=== PATIENT | male | born 1980 | race Caucasian/White ===

== ENCOUNTER 2017-02-02 23:06 | Emergency (ER) | payer SELFPAY ==
[2017-02-02 23:07] VITALS: BP 194/98; PULSE 78; RESP 16; TEMP 98.5; O2SAT 100
[2017-02-02] MEDS ORDERED: PRIL20TA2 (23:09)
[2017-02-02 23:15] VITALS: BP 177/93; PULSE 84; RESP 18; TEMP 98.3; O2SAT 100
[2017-02-02] MEDS ORDERED: SODIUM CHLOR 0.9% 1000 ML INJ 1,000 ML IV SCH (23:18)
--- NOTE | 2017-02-02 23:22 | PD ---
HPI Chief Complaint: Abdominal Pain Time Seen by Provider: 23:13 Travel History International Travel<30 days: No Contact w/Intl Traveler<30days: No Traveled to known affect area: No History of Present Illness HPI 36-year-old male here for evaluation of left flank pain radiating to his left lower abdomen. Patient reports that he first started noticing the pain this morning, and it has been increasingly worsening throughout the day today. Pain is currently moderate, intermittently worse at times, no modifying factors, begins in his left flank and radiates to his left lower abdomen. No fevers or chills. No nausea or vomiting. No history of abdominal surgeries. No dysuria or hematuria. PFSH Social History Tobacco Use: No Substance Use: Yes (marijuana use) Allergies-Medications (Allergen,Severity, Reaction): Coded Allergies: No Known Allergies (Unverified , 02/02/17) Reported Meds & Prescriptions Reported Meds & Active Scripts Active Zofran Odt (Ondansetron Odt) 4 Mg Tab 4 Mg SL Q8HR PRN Lortab (Hydrocodone-Acetaminophen) 5-325 Mg Tab 1 Tab PO Q6H PRN Flomax (Tamsulosin HCl) 0.4 Mg Cap 0.4 Mg PO HS Reported Prilosec (Omeprazole Magnesium) 20 Mg Tab Review of Systems Except as stated in HPI: all other systems reviewed are Neg Physical Exam Narrative GENERAL: Well-developed, well-nourished, overweight, comfortable, no apparent distress. SKIN: Focused skin assessment warm/dry. No rash. HEAD: Atraumatic. Normocephalic. EYES: Pupils equal and round. No scleral icterus. No injection or drainage. ENT: Mucous membranes pink and moist. NECK: Trachea midline. No JVD. CARDIOVASCULAR: Regular rate and rhythm. No murmur appreciated. RESPIRATORY: No accessory muscle use. Clear to auscultation. Breath sounds equal bilaterally. GASTROINTESTINAL: Abdomen soft, non-tender, nondistended. MUSCULOSKELETAL: No obvious deformities. No clubbing. No cyanosis. No edema. Moderate left CVA tenderness. No right CVA tenderness. NEUROLOGICAL: Awake and alert. No obvious cranial nerve deficits. Motor grossly within normal limits. Normal speech. PSYCHIATRIC: Appropriate mood and affect; insight and judgment normal. Data Data Last Documented VS Vital Signs Date Time Temp Pulse Resp B/P (MAP) Pulse Ox O2 Delivery O2 Flow Rate FiO2 02/03/17 01:46 02/02/17 23:15 98.3 84 18 100 Room Air Orders Orders Complete Blood Count With Diff (02/02/17 23:18) Comprehensive Metabolic Panel (02/02/17 23:18) Lipase (02/02/17:18) Prothrombin Time / Inr (Pt) (02/02/17:18) Act Partial Throm Time (Ptt) (02/02/17:18) Urinalysis - C+S If Indicated (02/02/17 23:18) Ct Abd/Pel W/O Iv Contrast (02/02/17 23:18) Iv Access Insert/Monitor (02/02/17:18) Ecg Monitoring (02/02/17:18) Oximetry (02/02/17:18) Sodium Chlor 0.9% 1000 Ml Inj (Ns 1000 M (02/02/17 23:18) Sodium Chloride 0.9% Flush (Ns Flush) (02/02/17 23:30) Ketorolac Inj (Toradol Inj) (02/02/17 23:30) Tamsulosin (Flomax) (02/03/17 00:45) Ed Discharge Order (02/03/17 01:42) Labs Laboratory Tests Test 02/02/17 23:25 02/03/17 00:45 White Blood Count 14.1 TH/MM3 Red Blood Count 5.37 MIL/MM3 Hemoglobin 15.9 GM/DL Hematocrit 45.7 % Mean Corpuscular Volume 85.2 FL Mean Corpuscular Hemoglobin 29.6 PG Mean Corpuscular Hemoglobin Concent 34.7 % Red Cell Distribution Width 13.9 % Platelet Count 194 TH/MM3 Mean Platelet Volume 9.9 FL CBC Comment AUTO DIFF Differential Total Cells Counted 100 Neutrophils % (Manual) 55 % Lymphocytes % 32 % Monocytes % 6 % Eosinophils % 5 % Basophils % 2 % Neutrophils # (Manual) 7.8 TH/MM3 Differential Comment FINAL DIFF MANUAL Platelet Estimate NORMAL Platelet Morphology Comment NORMAL Red Cell Morphology Comment NORMAL Prothrombin Time 10.3 SEC Prothromb Time International Ratio 0.9 RATIO Activated Partial Thromboplast Time 26.9 SEC Blood Urea Nitrogen 11 MG/DL Creatinine 1.35 MG/DL Random Glucose 131 MG/DL Total Protein 8.1 GM/DL Albumin 4.2 GM/DL Calcium Level 9.3 MG/DL Alkaline Phosphatase 79 U/L Aspartate Amino Transf (AST/SGOT) 23 U/L Alanine Aminotransferase (ALT/SGPT) 37 U/L Total Bilirubin 0.4 MG/DL Sodium Level 140 MEQ/L Potassium Level 3.3 MEQ/L Chloride Level 104 MEQ/L Carbon Dioxide Level 23.0 MEQ/L Anion Gap 13 MEQ/L Estimat Glomerular Filtration Rate 60 ML/MIN Lipase 216 U/L Urine Color YELLOW Urine Turbidity HAZY Urine pH 6.0 Urine Specific [place] 1.030 Urine Protein 30 mg/dL Urine Glucose (UA) NEG mg/dL Urine Ketones 10 mg/dL Urine Occult Blood MOD Urine Nitrite NEG Urine Bilirubin NEG Urine Urobilinogen 2.0 MG/DL Urine Leukocyte Esterase NEG Urine RBC 140 /hpf Urine WBC 2 /hpf Urine Calcium Oxalate Crystals OCC /hpf Urine Mucus FEW /lpf Microscopic Urinalysis Comment CULT NOT INDICATED MDM Medical Decision Making Medical Screen Exam Complete: Yes Emergency Medical Condition: Yes Differential Diagnosis Nephrolithiasis, ureterolithiasis, pyelonephritis, UTI, cystitis, diverticulitis , colitis, dissection/AAA unlikely, musculoskeletal pain Narrative Course Vital signs reviewed. CBC shows WBC 14.1, hemoglobin 15.9, hematocrit 46, platelets 194. CMP is remarkable for creatinine 1.35, GFR 60, random glucose 131. UA shows moderate occult blood, calcium oxalate crystals, not suggestive of UTI. CT abdomen pelvis: CONCLUSION: 1. Mild obstructive uropathy on the left secondary to a left proximal ureteral calculus measuring 6 mm. 2. Moderate hepatic steatosis. 3. Right renal cyst. Patient was given a dose of IV Toradol, a liter of normal saline IV, and an oral dose of Flomax. He is resting comfortably stating he feels much better. He was made aware of all findings and provided a copy of his CT abdomen pelvis report. Plan is to discharge him home and have him follow-up as an outpatient with urology in a primary care physician this week. He was informed on when to return to the emergency department. He verbalizes understanding and agreement with plan. Diagnosis Primary Impression: Ureterolithiasis Additional Impressions: Hepatic steatosis Renal cyst, right Referrals: Matthew Ferrera MD 3 days Urologist [facility] 3 days Additional Instructions: Follow-up with a primary care physician this week. Follow-up with urologist Dr. Ferrera or a urologist of your choice this week. Take medications as prescribed. Return to the emergency department for worsening symptoms or any other concerns. Scripts Ondansetron Odt (Zofran Odt) 4 Mg Tab 4 MG SL Q8HR Y for Nausea/Vomiting, #20 TAB 0 Refills Prov: Deepak Page MD 02/03/17 Hydrocodone-Acetaminophen (Lortab) 5-325 Mg Tab 1 TAB PO Q6H Y for PAIN, #10 TAB 0 Refills Prov: Deepak Page MD 02/03/17 Tamsulosin (Flomax) 0.4 Mg Cap 0.4 MG PO HS for Manage Prostate Problems, #14 CAP 0 Refills Prov: Deepak Page MD 02/03/17 Disposition: 01 DISCHARGE HOME Condition: Stable Deepak Page MD Feb 02, 2017 23:22
[2017-02-02] MEDS ORDERED: SODIUM CHLORIDE 0.9% FLUSH 10 ML FLUSH IV FLUSH PRN (23:30)
[2017-02-02] MEDS ORDERED: KETOROLAC TROMETHAMINE 30 MG/ML (IVP) VIAL IV PUSH ONE (23:30)
[2017-02-02 23:42] LABS: HEMATOCRIT 45.7 % (39.0-51.0); HEMOGLOBIN 15.9 GM/DL (13.0-17.0); MEAN CELL VOLUME 85.2 FL (80.0-100.0); MEAN CORPUSCULAR HEMOGLOBIN 29.6 PG (27.0-34.0); MEAN CORPUSCULAR HGB CONC 34.7 % (32.0-36.0); MEAN PLATELET VOLUME 9.9 FL (7.0-11.0); PLATELET COUNT 194 TH/MM3 (150-450); RED BLOOD COUNT 5.37 MIL/MM3 (4.50-5.90); RED CELL DISTRIBUTION WIDTH 13.9 % (11.6-17.2); WHITE BLOOD COUNT 14.1 TH/MM3 (4.0-11.0)
[2017-02-02 23:51] LABS: INTERNATIONAL NORMALIZED RATIO 0.9 RATIO; PROTHROMBIN TIME - PATIENT 10.3 SEC (9.8-11.6)
[2017-02-03 00:07] LABS: ALBUMIN 4.2 GM/DL (3.4-5.0); ALT (GPT) 37 U/L (12-78); AST (GOT) 23 U/L (15-37); BLOOD UREA NITROGEN 11 MG/DL (7-18); CALCIUM 9.3 MG/DL (8.5-10.1); CHLORIDE 104 MEQ/L (98-107); CREATININE 1.35 MG/DL (0.60-1.30); GLOMERULAR FILTRATION RATE 60 ML/MIN (>89); GLUCOSE,RANDOM 131 MG/DL (74-106); LIPASE 216 U/L (73-393); SODIUM (NA) 140 MEQ/L (136-145)
[2017-02-03 00:09] LABS: ALKALINE PHOSPHATASE 79 U/L (45-117); TOTAL BILIRUBIN ADULT 0.4 MG/DL (0.2-1.0); TOTAL PROTEIN 8.1 GM/DL (6.4-8.2)
[2017-02-03 00:10] LABS: BASOPHILS 2 % (0-2); LYMPHOCYTES 32 % (9-44); MONOCYTES 6 % (0-8); NEUTROPHIL # MANUAL DIFF 7.8 TH/MM3 (1.8-7.7); POLYS (SEG NEUTROPHILS) 55 % (16-70)
--- NOTE | 2017-02-03 00:31 | RADRPT ---
EXAM DATE/TIME: 02/03/2017 00:04 [place] COMPARISON: No previous studies available for comparison. INDICATIONS : Left flank pain. ORAL CONTRAST: No oral contrast ingested. RADIATION DOSE: 13.52 CTDIvol (mGy) MEDICAL HISTORY : None SURGICAL HISTORY : None. ENCOUNTER: Initial ACUITY: 1 day PAIN SCALE: 10/10 LOCATION: Left flank TECHNIQUE: Volumetric scanning of the abdomen and pelvis was performed. Using automated exposure control and ad justment of the mA and/or kV according to patient size, radiation dose was kept as low as reasonably achievable to obtain optimal diagnostic quality images. DICOM format image data is available electro nically for review and comparison. FINDINGS: LOWER LUNGS: The visualized lower lungs are clear. LIVER: Decreased attenuation without lesion. There is no dilation of the biliary tree. No calcified gallst ones. SPLEEN: Normal size without lesion. PANCREAS: Within normal limits. KIDNEYS: Normal in size and shape. There is no mass, stone, or hydronephrosis on the right. Right renal cyst. Mild hydronephrosis of the left leading to a left proximal ureteral calculus measuring 6 mm. ADRENAL GLANDS: Within normal limits. VASCULAR: There is no aortic aneurysm. BOWEL/MESENTERY: The stomach, small bowel, and colon demonstrate no acute abnormality. There is no free intraperitone al air or fluid. ABDOMINAL WALL: Within normal limits. RETROPERITONEUM: There is no lymphadenopathy. BLADDER: No wall thickening or mass. REPRODUCTIVE: Within normal limits. INGUINAL: There is no lymphadenopathy or hernia. MUSCULOSKELETAL: Within normal limits for patient age. CONCLUSION: 1. Mild obstructive uropathy on the left secondary to a left proximal ureteral calculus measuring 6 m m. 2. Moderate hepatic steatosis. 3. Right renal cyst. Jere Taveras MD on February 03, 2017 at 0:27 Board Certified Radiologist. This report was verified electronically.
[2017-02-03] MEDS ORDERED: TAMSULOSIN HCL 0.4 MG CAP PO ONE (00:45)
[2017-02-03 01:30] LABS: BILIRUBIN, URINE NEG (NEG); BLOOD, URINE MOD (NEG); CALCIUM OXALATE CRYSTALS,URINE OCC /hpf; GLUCOSE,URINE NEG (NEG); KETONE, URINE 10 mg/dL (NEG); MUCUS URINE FEW /lpf (OCC); NITRITE,URINE NEG (NEG); URINE COLOR YELLOW (YELLW/STRAW); URINE LEUKOCYTE ESTERASE NEG (NEG)
[2017-02-03] MEDS ORDERED: HYDR-3533 PO (01:42)
[2017-02-03] MEDS ORDERED: TAMS5CAP PO (01:42)
[2017-02-03] MEDS ORDERED: ZOFR4TAB3 SL (01:42)
== END 2017-02-03 02:03 | disposition home or self-care (01) ==
LOC: NEPC 23:06
DX: N20.1 Calculus of ureter (principal); K76.0 Fatty (change of) liver, not elsewhere classified; N28.1 Cyst of kidney, acquired
CPT/HCPCS: 74176; 80053; 81001; 83690; 85007; 85027; 85610; 85730; 96374; 99285; J1885; J7030

== ENCOUNTER 2017-10-03 10:33 | Emergency (ER) | payer SELFPAY ==
[~2017-10-03] VITALS: Ht 172.7 cm; Wt 95.0 kg
[~2017-10-03 10:33] MED LIST: HYDR-3533 PO; PRIL20TA2; TAMS5CAP PO; ZOFR4TAB3 SL
[2017-10-03 10:47] VITALS: BP 176/95; PULSE 112; RESP 26; TEMP 98.9; O2SAT 98
== END 2017-10-03 10:53 | disposition left against medical advice (07) ==
LOC: NED 10:33
DX: M54.9 Dorsalgia, unspecified (principal)
CPT/HCPCS: 99281

== ENCOUNTER 2017-10-19 18:47 | Inpatient (IN) ==
[2017-10-19] MEDS ORDERED: Sod Chloride 0.9% Inj 1,000 ML IV.SIG ONE (22:50)
[2017-10-19] MEDS ORDERED: Ketorolac Inj 30 MG/ML (IVP) Vial IV.PUSH ONE (22:50)
--- NOTE | 2017-10-19 22:53 | ED ---
HPI General Chief complaint: Urogenital-Male Stated complaint: Left flank pain/trouble going to bathroom both end Time Seen by Provider: 10/19/17 22:40 History of Present Illness HPI narrative: This is a 36-year-old male with history of renal lithiasis in the past. He presents for evaluation of left flank pain. Symptom onset 1 week ago. He describes it as a intermittent left flank pressure that radiates into the left lower quadrant. He reports associated increased urinary frequency, hesitancy, occasional nausea and vomiting, occasional sweats as well as intermittent constipation. Symptoms are moderate with no aggravating or alleviating factors. Denies testicular scrotal pain, urethral discharge. He has no other complaints. Related Data Home Medications Medication Instructions Recorded Confirmed No Known Home Medications 10/19/17 10/19/17 Allergies Allergy/AdvReac Type Severity Reaction Status Date / Time No Known Allergies Allergy Verified 10/19/17 22:44 Review of Systems ROS Unobtainable All other systems reviewed negative except as stated [facility] Medical History Medical History Patient denies medical problems (Acute) Surgical History Surgical History No history of previous surgery (Acute) Social History Social History Recent Travel in [facility] within the Last 8 Weeks: No Recent Out of Country Travel within the Last 8 Weeks: No Exam Narrative Exam Narrative: GENERAL: Well-developed well-nourished male in no acute distress SKIN: Warm and dry. HEAD: Atraumatic. Normocephalic. EYES: Pupils equal and round. No scleral icterus. No injection or drainage. ENT: No nasal bleeding or discharge. Mucous membranes pink and moist. NECK: Trachea midline. No JVD. CARDIOVASCULAR: Regular rate and rhythm. No murmur appreciated. RESPIRATORY: No accessory muscle use. Clear to auscultation. Breath sounds equal bilaterally. GASTROINTESTINAL: Abdomen soft, mild left lower quadrant tenderness without guarding. No palpable inguinal hernias. examination reveals bilateral descended testicles which are nontender. No urethral discharge. MUSCULOSKELETAL: No obvious deformities. Mild left CVA tenderness. NEUROLOGICAL: Awake and alert. No obvious cranial nerve deficits. Motor grossly within normal limits. Normal speech. PSYCHIATRIC: Appropriate mood and affect; insight and judgment normal. Course Initial Documented Vital Signs Temperature 98.8 F 10/19/17 19:21 Pulse Rate 81 10/19/17 19:21 Respiratory Rate 18 10/19/17 19:21 Blood Pressure 160/87 H 10/19/17 19:21 Pulse Oximetry 100 10/19/17 19:21 Last Documented Vital Signs Temperature 98.8 F 10/19/17 19:21 Pulse Rate 71 10/20/17 00:59 Respiratory Rate 18 10/20/17 00:59 Blood Pressure 139/85 10/20/17 00:59 Pulse Oximetry 99 10/20/17 00:59 Medical Decision Making MDM Narrative Medical decision making narrative: Plan is for lab work, urinalysis, CT abdomen and pelvis. The patient be given IV fluids, Zofran and Toradol. CT imaging reveals severe left-sided hydroureteronephrosis with a 5 mm stone in the distal left ureter with evidence of pyelonephritis. He has leukocytosis with WBC count of 18. At this point in time the plan will be to admit him for IV antibiotics and urology consultation. He is agreeable. IV Rocephin is been ordered. Blood cultures and lactic acid have been ordered. Differential Diagnosis Differential Diagnosis: Ureteral stone, hydronephrosis, cystitis, urethritis, pyelonephritis, diverticulitis, muscle strain Lab Data Result diagrams: 10/19/17 23:05 10/19/17 23:05 Lab Results 10/19/17 10/19/17 10/19/17 Range/Units 23:05 23:05 23:11 WBC 18.0 H (4.0-11.0) th/mm3 RBC 5.49 (4.50-5.90) mil/mm3 Hgb 15.9 (13.0-17.0) gm/dL Hct 46.7 (39.0-51.0) % MCV 85.2 (80.0-100.0) fL MCH 29.0 (27.0-34.0) pg MCHC 34.0 (32.0-36.0) % RDW 13.9 (11.6-17.2) % Plt Count 214 (150-450) th/mm3 MPV 9.9 (7.0-11.0) fL Neut % (Auto) 84.7 H (16.0-70.0) % Lymph % (Auto) 9.3 (9.0-44.0) % [place] % (Auto) 5.3 (0.0-8.0) % Eos % (Auto) 0.1 (0.0-4.0) % Baso % (Auto) 0.6 (0.0-2.0) % Neut # (Auto) 15.2 H (1.8-7.7) th/mm3 Lymph # (Auto) 1.7 (1.0-4.8) th/mm3 [place] # (Auto) 1.0 H (0.0-0.9) th/mm3 Eos # (Auto) 0.0 (0.0-0.4) th/mm3 Baso # (Auto) 0.1 (0.0-0.2) th/mm3 WBC Differential . Differential Comment Auto diff final Sodium 141 (136-145) meq/L Potassium 3.7 (3.5-5.1) meq/L Chloride 107 (98-107) meq/L Carbon Dioxide 22.5 (21.0-32.0) meq/L Anion Gap 12 (5-15) meq/L BUN 11 (7-18) mg/dL Creatinine 1.59 H (0.60-1.30) mg/dL Estimated GFR 50 L (>89) mL/min Random Glucose 116 H (74-106) mg/dL Lactic Acid (0.4-2.0) mmol/L Calcium 9.1 (8.5-10.1) mg/dL Total Bilirubin 0.6 (0.2-1.0) mg/dL AST 18 (15-37) U/L ALT 22 (12-78) U/L Alkaline Phosphatase 80 (45-117) U/L Total Protein 7.7 (6.4-8.2) g/dL Albumin 4.2 (3.4-5.0) g/dL Urine Color Yellow (Yellw/Straw) Urine Clarity Clear (Clear) Urine pH 8.0 (5.0-8.5) Ur Specific [place] 1.012 (1.002-1.035) Urine Protein Negative (Neg-Trace) mg/dL Urine Glucose (UA) Negative (Negative) mg/dL Urine Ketones 20 (Negative) mg/dL Urine Occult Blood Moderate H (Negative) Urine Nitrate Negative (Negative) Urine Bilirubin Negative (Negative) Urine Urobilinogen Less than 2 (Less than 2) mg/dL Ur Leukocyte Esterase Negative (Negative) Urine RBC 24 H (0-3) /hpf Urine WBC 2 (0-5) /hpf Micro UA Comment Culture not ind Urine Culture Comments Culture not ind 10/20/17 Range/Units 00:45 WBC (4.0-11.0) th/mm3 RBC (4.50-5.90) mil/mm3 Hgb (13.0-17.0) gm/dL Hct (39.0-51.0) % MCV (80.0-100.0) fL MCH (27.0-34.0) pg MCHC (32.0-36.0) % RDW (11.6-17.2) % Plt Count (150-450) th/mm3 MPV (7.0-11.0) fL Neut % (Auto) (16.0-70.0) % Lymph % (Auto) (9.0-44.0) % [place] % (Auto) (0.0-8.0) % Eos % (Auto) (0.0-4.0) % Baso % (Auto) (0.0-2.0) % Neut # (Auto) (1.8-7.7) th/mm3 Lymph # (Auto) (1.0-4.8) th/mm3 [place] # (Auto) (0.0-0.9) th/mm3 Eos # (Auto) (0.0-0.4) th/mm3 Baso # (Auto) (0.0-0.2) th/mm3 WBC Differential Differential Comment Sodium (136-145) meq/L Potassium (3.5-5.1) meq/L Chloride (98-107) meq/L Carbon Dioxide (21.0-32.0) meq/L Anion Gap (5-15) meq/L BUN (7-18) mg/dL Creatinine (0.60-1.30) mg/dL Estimated GFR (>89) mL/min Random Glucose (74-106) mg/dL Lactic Acid 2.1 H (0.4-2.0) mmol/L Calcium (8.5-10.1) mg/dL Total Bilirubin (0.2-1.0) mg/dL AST (15-37) U/L ALT (12-78) U/L Alkaline Phosphatase (45-117) U/L Total Protein (6.4-8.2) g/dL Albumin (3.4-5.0) g/dL Urine Color (Yellw/Straw) Urine Clarity (Clear) Urine pH (5.0-8.5) Ur Specific [place] (1.002-1.035) Urine Protein (Neg-Trace) mg/dL Urine Glucose (UA) (Negative) mg/dL Urine Ketones (Negative) mg/dL Urine Occult Blood (Negative) Urine Nitrate (Negative) Urine Bilirubin (Negative) Urine Urobilinogen (Less than 2) mg/dL Ur Leukocyte Esterase (Negative) Urine RBC (0-3) /hpf Urine WBC (0-5) /hpf Micro UA Comment Urine Culture Comments Imaging Data Radiologist's impression: ITS Impressions Abdomen/Pelvis CT 10/19/17 22:49 CONCLUSION: 1. Severe left-sided hydroureteronephrosis secondary to 5 mm calcified calculus at the UVJ. Moderate perinephric stranding concerning for superimposed pyelonephritis. 2. Improved hepatic steatosis. 3. Stable 2 cm right renal cyst. Discharge Plan Discharge Disposition Patient Disposition: 30 Still Patient Discharge Condition Condition: Stable Discharge Details Diagnosis: Calculus, ureteral, Hydroureteronephrosis, Acute pyelonephritis Physicians Team ED Provider: Erin Han ED Midlevel Provider: Armani Dimas Primary Care Provider: Primary Care Lyle,Gabby Attending Provider: Nina Rosales Status ED Status: Admitted Patient
[2017-10-19 23:19] LABS: Baso # (Auto) 0.1 th/mm3 (0.0-0.2); Baso % (Auto) 0.6 % (0.0-2.0); Eos % (Auto) 0.1 % (0.0-4.0); Hematocrit 46.7 % (39.0-51.0); Hemoglobin 15.9 gm/dL (13.0-17.0); Lymph # (Auto) 1.7 th/mm3 (1.0-4.8); Lymph % (Auto) 9.3 % (9.0-44.0); Mean Corpuscular Volume 85.2 fL (80.0-100.0); Mean Platelet Volume 9.9 fL (7.0-11.0); Mono % (Auto) 5.3 % (0.0-8.0); Neut # (Auto) 15.2 th/mm3 (1.8-7.7); Neut % (Auto) 84.7 % (16.0-70.0); Platelet Count 214 th/mm3 (150-450); Red Blood Count 5.49 mil/mm3 (4.50-5.90); Red Cell Distribution Width 13.9 % (11.6-17.2)
[2017-10-19 23:25] LABS: Bilirubin,Urine Negative (Negative); Clarity,Urine Clear (Clear); Color,Urine Yellow (Yellw/Straw); Glucose,Urine (UA) Negative (Negative); Leukocyte Esterase,Urine Negative (Negative); Nitrite,Urine Negative (Negative); Specific Gravity,Urine 1.012 (1.002-1.035)
[2017-10-19 23:36] LABS: Alanine Aminotransferase 22 U/L (12-78); Albumin 4.2 g/dL (3.4-5.0); Anion Gap 12 meq/L (5-15); Aspartate Aminotransferase 18 U/L (15-37); Blood Urea Nitrogen 11 mg/dL (7-18); Calcium 9.1 mg/dL (8.5-10.1); Carbon Dioxide 22.5 meq/L (21.0-32.0); Chloride 107 meq/L (98-107); Glomerular Filtration Rate 50 mL/min (>89); Glucose,Random 116 mg/dL (74-106); Potassium 3.7 meq/L (3.5-5.1); Sodium 141 meq/L (136-145)
[2017-10-19 23:38] LABS: Alkaline Phosphatase 80 U/L (45-117); Total Protein 7.7 g/dL (6.4-8.2)
--- NOTE | 2017-10-19 23:56 | CT ---
EXAM DATE: 10/19/2017 11:38 PM EDT AGE/SEX: 36 years / Male INDICATIONS: Left flank pain. CLINICAL DATA: This is the patient's initial encounter. Patient reports that signs and symptoms have been present for 1 day and indicates a pain score of 5/10. MEDICAL/SURGICAL HISTORY: None. None. RADIATION DOSE: 7.24 CTDI (mGy) [place] [facility] [place] 02/03/2017. . TECHNIQUE: Multiple contiguous axial images were obtained through the abdomen. Images were obtained using multiple row detector helical technique. Using automated exposure control and adjustment of the mA and/or kV according to patient size, radiation dose was kept as low as reasonably achievable to o btain optimal diagnostic quality images. DICOM format image data is available electronically for rev iew and comparison. FINDINGS: LOWER LUNGS: The visualized lower lungs are clear. LIVER: Mild diffusely decreased hepatic density is improved from prior exam. No intrahepatic ductal dilatation. No calcified gallstones. SPLEEN: Homogeneous density without enlargement. PANCREAS: Unremarkable without mass or calcification. KIDNEYS: There is severe left-sided hydroureteronephrosis extending to the UVJ with a 5 mm calcified calculus at the UVJ. There is moderate perinephric stranding. Right kidney is stable with 2.1 cm cys t in the superior pole. No additional radiopaque renal calculi. ADRENAL GLANDS: Unremarkable. AORTA: Lilian-aneurysmal. BOWEL/MESENTERY: The bowel loops are grossly unremarkable. The cecum and sigmoid colon have a zack l configuration. Appendix is normal. ABDOMINAL WALL: Intact. RETROPERITONEUM: No evidence of adenopathy in the retrocrural, para-aortic, or deep pelvic regions. BLADDER: Largely decompressed. REPRODUCTIVE: Small calcifications in the prostate. BONY STRUCTURES: Unremarkable. CONCLUSION: 1. Severe left-sided hydroureteronephrosis secondary to 5 mm calcified calculus at the UVJ. Moderate perinephric stranding concerning for superimposed pyelonephritis. 2. Improved hepatic steatosis. 3. Stable 2 cm right renal cyst. Electronically signed by: Rhys Raza MD 10/19/2017 11:54 PM EDT
[2017-10-20] MEDS ORDERED: Bisacodyl 10 MG Supp RECTAL PRN (02:42)
[2017-10-20] MEDS ORDERED: Morphine Inj 4 MG/ML Vial IV.PUSH PRN (02:42)
[2017-10-20] MEDS ORDERED: Temazepam 15 MG Capsule PO PRN (02:42)
[2017-10-20] MEDS ORDERED: Acetaminophen 325 MG Tablet PO PRN (02:42)
[2017-10-20] MEDS: Sod Chloride 0.9% Inj 1,000 ML IV.CONT SCH ×2 (03:27→17:39)
--- NOTE | 2017-10-20 04:23 | P.HPIM ---
History of Present Illness Primary Care Physician: No Primary Care Physician Chief Complaint: nausea, diaphoresis, flank pain History of Present Illness: Mr. Martínez is a 36 y/o male with a history of left nephrolithiasis (01/2017) and hepatic steatosis (improved on this visit) who presented to the ER for evaluation of progressively worsening nausea, diaphoresis and left flank pain - severe were severe on presentation and have greatly improved by the time of my visit. Abd/Pelvis CT demonstrates severe left sided hydronephrosis secondary to 5 mm calculus at UVJ with moderate perinephric stranding concerning for pyelonephritis. WBC 18.0 with neutrophilia. The patient is admitted to the [facility] service for medical management. Symptoms have improved with IV Toradol, IVF hydration, IV antibiotics, and PO Zofran. Symptoms present intermittently x 1 week. - Diagnosis (1) Acute pyelonephritis (2) Hydroureteronephrosis (3) Calculus, ureteral Inpatient Certification: I certify that the inpatient services were ordered in accordance with Medicare regulations governing the order. This includes certification that hospital inpatient services are reasonable and necessary and in the case of services not specified as inpatient-only under 42 CFR 419.22(n), that they are appropriately provided as inpatient services in accordance to with the 2-midnight benchmark under 43 CFR 412.3(e) Estimated Total Length of Stay (Days): 2 Plans for Post Hospital Care: Not yet determined Review of Systems All other systems reviewed negative except as stated in [facility] - History History Provided By: Patient - Medical History Medical History: Medical History (Last Updated 10/20/17 @ 04:42 by RUI Quevedo) Left nephrolithiasis - Surgical History Surgical History: Surgical History (Last Updated 10/19/17 @ 19:23 by Dayana Marina) No history of previous surgery - Family History Family History: Family History (Last Updated 10/20/17 @ 04:43 by RUI Quevedo) Mother Nephrolithiasis - Tobacco History Smoking Status: Never smoker - Alcohol History How Often Do You Have a Drink Containing Alcohol: Never - Substance Use History Substance History: Active Abuse - Substance Use Type Marijuana Status: Active Route Used: Inhalation Frequency: daily - Travel History Recent Travel in the [place] Within the Last 8 Weeks: No Recent Travel Out of the Country Within the Last 8 Weeks: No Medications and Allergies Active Medications: Active Medications Acetaminophen (Tylenol) 650 mg PO Q4H PRN PRN Reason: Temp > 100.4 Al Hydroxide/Mg Hydroxide (Milk Of Magnesia Liq) 30 ml PO Q12H PRN PRN Reason: Mild Constipation Bisacodyl (Dulcolax Supp) 10 mg RECTAL DAILY PRN PRN Reason: SEVERE CONSITIPATION Ceftriaxone Sodium 1,000 mg/ (Sodium Chloride) 100 mls @ 200 mls/hr IV.SIG Q24H DANTE Sodium Chloride (Ns Inj) 1,000 mls @ 100 mls/hr IV.CONT .Q10H [facility] Last Admin: 10/20/17 03:27 Dose: 100 mls/hr Lactulose (Lactulose Liq) 30 ml PO DAILY PRN PRN Reason: SEVERE CONSITIPATION Morphine Sulfate (Morphine Inj) 2 mg IV.PUSH Q4H PRN PRN Reason: pain 6-10 Ondansetron HCl (Zofran Inj) 4 mg IV.PUSH Q6H PRN PRN Reason: NAUSEA OR VOMITING Senna/Docusate Sodium (Abbey-Colace) 1 tab PO BID [facility] Sennosides (Senokot) 17.2 mg PO Q12H PRN PRN Reason: Moderate Constipation Sodium Chloride (Ns Flush) 2 ml IV.FLUSH PRN PRN PRN Reason: FLUSH AFTER USING IV ACCESS Temazepam (Restoril) 15 mg PO HS PRN PRN Reason: INSOMNIA Allergies Allergy/AdvReac Type Severity Reaction Status Date / Time No Known Allergies Allergy Verified 10/19/17 22:44 Home Medications Medication Instructions Recorded Confirmed Type No Known Home Medications 10/19/17 10/19/17 History Exam Vital signs: Vital Signs 10/19/17 19:21 10/20/17 00:59 10/20/17 03:25 Temperature 98.8 F Pulse Rate 81 71 68 Respiratory Rate 18 18 18 Blood Pressure 160/87 H 139/85 133/74 Pulse Oximetry 100 99 98 Intake & Output 10/19/17 10/19/17 10/20/17 06:59 18:59 06:59 Intake Total 1100 / 1100 Balance 1100 / 1100 Weight 102.058 kg Intake: IV 1100 / 1100 Rocephin Inj 1,000 MG In NS Inj 100 / 100 100 ML @ 200 mls/hr IV.SIG ONCE ONE Rx#:[id number] - Constitutional no acute distress, obese - Routine Respiratory Exam Present: CTA bilaterally. Absent: wheezes, crackles - Routine Cardiovascular Exam Present: RRR, S1, S2. Absent: murmur, gallop, rubs - Routine Abdominal Exam Present: soft, normoactive bowel sounds. Absent: tenderness - Routine Extremities Exam Present: pulses intact. Absent: edema - Routine Skin Exam Present: intact, dry - Routine Neurological Exam Present: alert, oriented X3 - Additional findings Additional findings: mild left CVA tenderness Results - Labs CBC & Chem 7: 10/19/17 23:05 10/19/17 23:05 Labs: Short CBC 10/19/17 Range/Units 23:05 WBC 18.0 H (4.0-11.0) th/mm3 Hgb 15.9 (13.0-17.0) gm/dL Hct 46.7 (39.0-51.0) % Plt Count 214 (150-450) th/mm3 BMP 10/19/17 23:05 Sodium 141 Potassium 3.7 Chloride 107 Carbon Dioxide 22.5 BUN 11 Creatinine 1.59 H Calcium 9.1 Liver Function 10/19/17 Range/Units 23:05 Total Bilirubin 0.6 (0.2-1.0) mg/dL AST 18 (15-37) U/L ALT 22 (12-78) U/L Alkaline Phosphatase 80 (45-117) U/L Albumin 4.2 (3.4-5.0) g/dL Urine 10/19/17 Range/Units 23:11 Urine Color Yellow (Yellw/Straw) Urine Clarity Clear (Clear) Urine pH 8.0 (5.0-8.5) Ur Specific [place] 1.012 (1.002-1.035) Urine Protein Negative (Neg-Trace) mg/dL Urine Glucose (UA) Negative (Negative) mg/dL - Imaging Impressions Abdomen/Pelvis CT 10/19/17 22:49 CONCLUSION: 1. Severe left-sided hydroureteronephrosis secondary to 5 mm calcified calculus at the UVJ. Moderate perinephric stranding concerning for superimposed pyelonephritis. 2. Improved hepatic steatosis. 3. Stable 2 cm right renal cyst. Caprini VTE Risk Assessment Caprini VTE Risk Assessment: No/Low Risk (score <= 1) Caprini Risk Assessment Model: Point Value = 1 Point Value = 2 Point Value = 3 Point Value = 5 Age 41-60 Minor surgery BMI > 25 kg/m2 Swollen legs Varicose veins or History of unexplained or recurrent spontaneous Oral contraceptives or hormone replacement Sepsis (< 1 month) Serious lung disease, including pneumonia (< 1 month) Abnormal pulmonary function Acute myocardial infarction Congestive heart failure (< 1 month) History of inflammatory bowel disease Medical patient at bed rest Age 61-74 Arthroscopic surgery Major open surgery (> 45 min) Laparoscopic surgery (> 45 min) Malignancy Confined to bed (> 72 hours) Immobilizing plaster cast Central venous access Age >= 75 History of VTE Family history of VTE Factor V Leiden Prothrombin [id number] Lupus anticoagulant Anticardiolipin antibodies Elevated serum homocysteine Heparin-induced thrombocytopenia Other congenital or acquired thrombophilia Stroke (< 1 month) Elective arthroplasty Hip, pelvis, or leg fracture Acute spinal cord injury (< 1 month) Prophylaxis Regimen: Total Risk Factor Score Risk Level Prophylaxis Regimen 0-1 Low Early ambulation 2 Moderate Order ONE of the following: *Sequential Compression Device (SCD) *Heparin 5000 units SQ BID 3-4 Higher Order ONE of the following medications: *Heparin 5000 units SQ TID *Enoxaparin/Lovenox 40 mg SQ daily (WT < 150 kg, CrCl > 30 mL/min) *Enoxaparin/Lovenox 30 mg SQ daily (WT < 150 kg, CrCl > 10-29 mL/min) *Enoxaparin/Lovenox 30 mg SQ BID (WT < 150 kg, CrCl > 30 mL/min) AND/OR *Sequential Compression Device (SCD) 5 or more Highest Order ONE of the following medications: *Heparin 5000 units SQ TID (Preferred with Epidurals) *Enoxaparin/Lovenox 40 mg SQ daily (WT < 150 kg, CrCl > 30 mL/min) *Enoxaparin/Lovenox 30 mg SQ daily (WT < 150 kg, CrCl > 10-29 mL/min) *Enoxaparin/Lovenox 30 mg SQ BID (WT < 150 kg, CrCl > 30 mL/min) AND *Sequential Compression Device (SCD) Assessment and Plan - Assessment (1) Acute pyelonephritis Code(s): N10 - Acute pyelonephritis Status: Acute (2) Hydroureteronephrosis Code(s): N13.30 - Unspecified hydronephrosis Status: Acute (3) Calculus, ureteral Code(s): N20.1 - Calculus of ureter Status: Acute - Plan Mr. Martínez is a 36 y/o male with a history of nephrolithiasis (01/2017) and hepatic steatosis (improved on this visit) who presented to the ER for evaluation of progressively worsening nausea, diaphoresis and left flank pain - severe were severe on presentation and have greatly improved by the time of my visit. Abd/Pelvis CT demonstrates severe left sided hydronephrosis secondary to 5 mm calculus at UVJ with moderate perinephric stranding concerning for pyelonephritis. WBC 18.0 with neutrophilia. The patient is admitted to the [facility] service for medical management. Acute Pyelonephritis - Ceftriaxone IV - monitor CBC - Lactic acid 2.1 - repeat ordered - follow cultures Hydroureteronephrosis secondary to nephrolithiasis - IV Morphine PRN pain - IVF hydration - Consult urology - appreciate assistance - Zofran PRN n/v DVT prophylaxis - early ambulation Discussed Condition With: RN and Dr. Rosales
[2017-10-20] MEDS: Senna/Docusate Sodium 8.6/50 MG Tablet PO SCH ×2 (08:00→20:20)
--- NOTE | 2017-10-20 08:58 | MB ---
cc: ChetYuriyJames Nathan DATE: 10/20/2017 HISTORY OF PRESENT ILLNESS: This is a 36-year-old male presented with 24-hour onset of left-sided flank pain, associated with some nausea and diaphoresis. He does have a history of nephrolithiasis in the past. He denies any fever or chills. CT scan in the emergency room showed moderate left-sided hydronephrosis with a 4.7 mm left UVJ stone. Presently, he is pain free and denies any other complaints. PAST MEDICAL HISTORY: Noted for nephrolithiasis. PAST SURGICAL HISTORY: He denies. FAMILY HISTORY: Noted for stones. SOCIAL HISTORY: Denies smoking, denies drinking, but is noted to use drugs in the past. He smokes marijuana. REVIEW OF SYSTEMS: Denies chest pain or shortness of breath. Presently denies abdominal pain. No nausea or vomiting at present. Denies gait disturbances, bleeding disorders, psychiatric problems, skin lesions, and headaches. The remaining review of systems were reviewed and were negative. PHYSICAL EXAMINATION: VITAL SIGNS: Temperature 98.8, heart rate 81, respiratory rate 18, blood pressure 133/74, and 98% on room air. GENERAL: He is a well-developed, well-nourished, 36-year-old male in no acute distress. HEENT: Normocephalic, atraumatic. Pupils equal, round, regular, reactive to light. Extraocular movements intact. NECK: Supple. HEART: Regular rate and rhythm. LUNGS: Clear. ABDOMEN: Soft, nontender, and nondistended. BACK: Minimal left-sided CVA tenderness is noted. GENITOURINARY: Normal phallus. Testes descended. EXTREMITIES: Show no evidence of cyanosis, clubbing, or edema. LABORATORY DATA: White count is 18.0, hemoglobin 15.9, hematocrit 46.7, platelet count of 214. Sodium 141, potassium 3.7, chloride 107, CO2 of 22.5, BUN 11, creatinine 1.59, glucose of 116. Lactic acid of 0.7. Urinalysis shows 24 red cells with 2 white cells. IMAGING STUDIES: Again, CT scan of the abdomen and pelvis shows left-sided hydroureteronephrosis due to a 4.7 mm UVJ calculus on the left. Moderate perinephric stranding is noted. ASSESSMENT AND PLAN: A 36-year-old male with 5 mm distal left ureteropelvic junction stone with 2 WBCs noted in his urinalysis. Doubt this is pyelonephritis. No evidence of any fever has been documented. Would recommend conservative measures at this time, IV fluids and pain management. He can follow up on an outpatient basis. Thank you for the consult and allowing me to participate in the care of this patient. DO JENNIFER Mak/COLLETTE , 08:40 AM , 08:57 AM
[2017-10-21] MEDS: Sod Chloride 0.9% Inj 1,000 ML IV.CONT SCH (06:50)
[2017-10-21 07:08] LABS: Baso # (Auto) 0.1 th/mm3 (0.0-0.2); Baso % (Auto) 0.5 % (0.0-2.0); Eos # (Auto) 0.1 th/mm3 (0.0-0.4); Eos % (Auto) 0.5 % (0.0-4.0); Hematocrit 40.5 % (39.0-51.0); Hemoglobin 13.7 gm/dL (13.0-17.0); Lymph # (Auto) 2.5 th/mm3 (1.0-4.8); Mean Corpuscular HGB Conc 33.7 % (32.0-36.0); Mean Corpuscular Hemoglobin 29.1 pg (27.0-34.0); Mean Corpuscular Volume 86.3 fL (80.0-100.0); Mean Platelet Volume 10.6 fL (7.0-11.0); Mono # (Auto) 1.1 th/mm3 (0.0-0.9); Mono % (Auto) 9.7 % (0.0-8.0); Neut # (Auto) 7.6 th/mm3 (1.8-7.7); Neut % (Auto) 67.3 % (16.0-70.0); Platelet Count 158 th/mm3 (150-450); Red Blood Count 4.69 mil/mm3 (4.50-5.90); Red Cell Distribution Width 13.9 % (11.6-17.2); White Blood Count 11.3 th/mm3 (4.0-11.0)
[2017-10-21 07:29] LABS: Calcium 8.4 mg/dL (8.5-10.1); Carbon Dioxide 22.5 meq/L (21.0-32.0); Potassium 3.8 meq/L (3.5-5.1)
[2017-10-21] MEDS: Senna/Docusate Sodium 8.6/50 MG Tablet PO SCH (09:21)
--- NOTE | 2017-10-21 11:02 | P.PNIM ---
Subjective Interval history: The patient was resting comfortably in bed. His mother was at the bedside. The patient wanted to go home. He said he has been urinating well. He said he has not been requiring pain medication. He said he will follow-up with a urologist. Discussed with nursing. Physical Exam Vital signs: Vital Signs 10/20/17 12:33 10/20/17 16:00 10/20/17 20:46 Temperature 97.9 F 97.7 F 98.8 F Pulse Rate 86 80 76 Respiratory Rate 16 16 18 Blood Pressure 121/77 94/94 H 151/89 H Pulse Oximetry 100 100 10/20/17 21:10 10/21/17 00:39 10/21/17 02:53 Temperature 97.6 F Pulse Rate 83 87 75 Respiratory Rate 17 Blood Pressure 132/83 Pulse Oximetry 100 10/21/17 03:55 10/21/17 09:22 Temperature 98.0 F 98.2 F Pulse Rate 75 71 Respiratory Rate 18 18 Blood Pressure 143/86 H 152/98 H Pulse Oximetry 99 100 Intake & Output 10/20/17 10/21/17 10/21/17 18:59 06:59 18:59 Intake Total 360 / 360 Output Total 300 / 300 Balance 60 / 60 Weight 102.058 kg 103.6 kg Intake: Oral 360 / 360 Output: Urine 300 / 300 Other: # Voids 3 Date of Last Bowel Movement 10/19/17 10/19/17 # Bowel Movements 0 Weight On Admission 102.076 kg Narrative: Constitutional no acute distress, obese - Routine Respiratory Exam Present: CTA bilaterally. Absent: wheezes, crackles - Routine Cardiovascular Exam Present: RRR, S1, S2. Absent: murmur, gallop, rubs - Routine Abdominal Exam Present: soft, normoactive bowel sounds. Absent: tenderness - Routine Extremities Exam Present: pulses intact. Absent: edema - Routine Skin Exam Present: intact, dry - Routine Neurological Exam Present: alert, oriented X3 Results - Labs CBC & Chem 7: 10/21/17 05:35 10/21/17 05:35 Laboratory Results - last 24 hr 10/21/17 10/21/17 05:35 05:35 WBC 11.3 H RBC 4.69 Hgb 13.7 D Hct 40.5 MCV 86.3 MCH 29.1 MCHC 33.7 RDW 13.9 Plt Count 158 MPV 10.6 Neut % (Auto) 67.3 Lymph % (Auto) 22.0 Lamar % (Auto) 9.7 H Eos % (Auto) 0.5 Baso % (Auto) 0.5 Neut # (Auto) 7.6 Lymph # (Auto) 2.5 [place] # (Auto) 1.1 H Eos # (Auto) 0.1 Baso # (Auto) 0.1 WBC Differential . Differential Comment Auto diff final Sodium 144 Potassium 3.8 Chloride 113 H Carbon Dioxide 22.5 Anion Gap 9 BUN 8 Creatinine 1.50 H Estimated GFR 53 L Random Glucose 86 Calcium 8.4 L Assessment and Plan - Plan Mr. Martínez is a 36 y/o male with a history of nephrolithiasis (01/2017) and hepatic steatosis (improved on this visit) who presented to the ER for evaluation of progressively worsening nausea, diaphoresis and left flank pain - severe were severe on presentation and have greatly improved by the time of my visit. Abd/Pelvis CT demonstrates severe left sided hydronephrosis secondary to 5 mm calculus at UVJ with moderate perinephric stranding concerning for pyelonephritis. WBC 18.0 with neutrophilia. The patient is admitted to the [facility] service for medical management. Acute Pyelonephritis Urology consult appreciated. - Ceftriaxone IV. Change to PO Ceftin. - follow cultures - outpt follow up with urology. Hydroureteronephrosis secondary to nephrolithiasis - IV Morphine PRN pain. No longer requiring pain meds. - IVF hydration. ADAT. - urology follow-up. - Zofran PRN n/v Acute renal failure Likely s/t above. - repeat BMP in 3-5 days and follow up with urology. Encourage PO intake. DVT prophylaxis - early ambulation
== END 2017-10-21 12:34 | disposition home or self-care (01) ==
LOC: NEPD 18:47 → NEDA 10-20 00:57 → N06 10-20 12:33
PROVIDERS: ADMIT Hospitalist; ATTEND Hospitalist